=== PATIENT | female | born 1990 ===

== ENCOUNTER 2022-07-01 03:04 | Inpatient (IN) | payer OTHER ==
[2022-07-01] MEDS ORDERED: Oxytocin/0.9 % Sodium Chloride 30 UNIT/500 ML BAG ONE (03:16)
[2022-07-01] MEDS ORDERED: Lactated Ringers 1,000 ML IV SCH (03:30)
[2022-07-01] MEDS ORDERED: Lidocaine 1% 50 ML MDV ONE (03:46)
[2022-07-01] MEDS ORDERED: Acetaminophen 500 MG Tab PO PRN ×2 (04:28)
[2022-07-01] MEDS ORDERED: Bisacodyl 10 MG Supp RECTAL PRN (04:28)
[2022-07-01] MEDS ORDERED: Carboprost Tromethamine 250 MCG/1 ML Amp IM PRN (04:28)
[2022-07-01] MEDS ORDERED: Ibuprofen 400 MG Tab PO PRN (04:28)
[2022-07-01] MEDS ORDERED: Misoprostol 200 MCG Tab RECTAL PRN (04:28)
[2022-07-01] MEDS ORDERED: Tranexamic Acid 1,000 MG in Sodium Chloride 0.9% 100 ML IV PRN (04:28)
[2022-07-01] MEDS ORDERED: Benzocaine/Menthol 20%-0.5% Spray 78 GM Cannister TOP PRN (04:28)
[2022-07-01] MEDS ORDERED: Methylergonovine 0.2 MG/1 ML Amp IM PRN (04:28)
[2022-07-01] MEDS ORDERED: Lanolin 100% Cream 7 GM Tube TOP PRN (04:28)
[2022-07-01] MEDS ORDERED: oxyCODONE 5 MG Tab PO PRN (04:28)
[2022-07-01] MEDS ORDERED: Witch Hazel Medicated Pads 40/Jar TOP PRN (04:28)
[2022-07-01] MEDS: Ibuprofen 800 MG Tab PO PRN ×2 (08:32→16:15)
[2022-07-01] MEDS: Docusate Sodium 100 MG Cap PO PRN (08:34)
[2022-07-02] MEDS: Ibuprofen 800 MG Tab PO PRN ×2 (02:09→09:27)
[2022-07-02] MEDS: Docusate Sodium 100 MG Cap PO PRN (09:27)
== END 2022-07-02 12:14 | disposition home or self-care (01) | DRG 807 ==
LOC: MW.OBCHECK 03:04 → MW.OB 03:05 → MW.OBCHECK 03:09 → MW.OB 03:10 → OBSVTOIN 03:28 → MW.OB 07:36
PROVIDERS: ADMIT Obstetrics & Gynecology; ATTEND Obstetrics & Gynecology
PROC: 10E0XZZ Delivery of Products of Conception, External Approach (ICD-10-PCS; principal; 2022-07-01)
PROC: 0HQ9XZZ Repair Perineum Skin, External Approach (ICD-10-PCS; 2022-07-01)
DX: O48.0 Post-term pregnancy (principal); Z37.0 Single live birth; O70.0 First degree perineal laceration during delivery; Z3A.40 40 weeks gestation of pregnancy; O99.02 Anemia complicating childbirth; D64.9 Anemia, unspecified; Z20.822 Contact with and (suspected) exposure to COVID-19
CPT/HCPCS: 36415; 59025; 59409; 82803; 85014; 85018; 85025; 86592; 86850; 86900; 86901; A9270-GY; J2001; J2590; U0002